=== PATIENT | male | born 1975 | race Caucasian/White ===

== ENCOUNTER 2017-03-22 16:03 | Emergency (ER) | payer MEDICARE, MEDICAID ==
[~2017-03-22] VITALS: Ht 182.9 cm; Wt 127.0 kg
[2017-03-22] MEDS ORDERED: VESICARE TAB 10MG (16:26)
[2017-03-22] MEDS ORDERED: VOLTAREN GEL 1% (16:26)
[2017-03-22] MEDS ORDERED: STOOL SOFTNR (16:26)
[2017-03-22] MEDS ORDERED: RANITIDINE 150 MG (16:26)
[2017-03-22] MEDS ORDERED: ALLOPURINOL 100 MG (16:26)
[2017-03-22] MEDS ORDERED: [UNRECOGNIZED DRUG - CODE] (16:26)
[2017-03-22] MEDS ORDERED: VENTOLIN HFA AER (16:26)
[2017-03-22] MEDS ORDERED: OLOPATADINE 0.2% (16:26)
[2017-03-22] MEDS ORDERED: FUROSEMIDE TAB 40MG (16:26)
[2017-03-22] MEDS ORDERED: [UNRECOGNIZED DRUG - OTHER] (16:26)
[2017-03-22] MEDS ORDERED: DIVALPROEX 250 MG (16:26)
[2017-03-22] MEDS ORDERED: ESOMEPRA MAG CAP 40MG DR (16:26)
[2017-03-22] MEDS ORDERED: DULOXETINE CAP 60MG (16:26)
[2017-03-22] MEDS ORDERED: [UNRECOGNIZED DRUG - REMARK] (16:26)
[2017-03-22] MEDS ORDERED: CLONAZEPAM TAB 2MG (16:26)
[2017-03-22] MEDS ORDERED: NASONEX (16:26)
[2017-03-22] MEDS ORDERED: LYRICA 200 MG (16:26)
[2017-03-22] MEDS ORDERED: CYCLOBENZAPR TAB 10MG (16:26)
[2017-03-22] MEDS ORDERED: HYDROCO/APAP TAB 10-325MG (16:26)
[2017-03-22] MEDS ORDERED: CILOSTAZOL 50 MG (16:27)
[2017-03-22] MEDS ORDERED: CELECOXIB 200 MG (16:27)
[2017-03-22] MEDS ORDERED: AMITRIPTYLINE 25 MG (16:27)
--- NOTE | 2017-03-22 18:38 | NUR ---
PT WAS EVALUATED BY DR HAND. PT WAS D/C TO HOME. D/C INSTRUCTIONS GIVEN TO THE PT BY DR HAND.
[2017-03-22 18:40] VITALS: BP 139/87
== END 2017-03-22 18:41 | disposition home or self-care (01) ==
LOC: ER 16:06
DX: G62.9 Polyneuropathy, unspecified (principal); B35.3 Tinea pedis; F17.200 Nicotine dependence, unspecified, uncomplicated; M10.9 Gout, unspecified
CPT/HCPCS: 82962; 99282; A4663